=== PATIENT | female | born 1970 | race Caucasian/White ===

== ENCOUNTER 2017-06-03 12:24 | Inpatient (IN) | payer OTHER ==
[2017-06-03 13:12] LABS: Hematocrit 36.9 % (36.0-47.0); Mean Platelet Volume 7.4 fL (7.4-10.4); Red Blood Cell (RBC) Count 4.53 mill/uL (4.20-5.40); White Blood Cell (WBC) Count 21.7 thou/uL (4.8-10.8)
[2017-06-03 13:18] LABS: PTT 38.9 SEC (22.9-36.1); Prothrombin Time 15.6 SEC (12.0-14.7)
[2017-06-03] MEDS ORDERED: Dexamethasone 4 mg/ml Vial ONE (13:21)
[2017-06-03] MEDS ORDERED: Magnesium Sulfate 2 GM/100 ML BAG ONE (13:22)
[2017-06-03 13:25] LABS: Anisocytosis SLIGHT = 6-15 cells (100X) (0-5/hpf); Band 22 % (5-11); Hypochromia SLIGHT = 6-15 cells (100X) (0-5/hpf); Metamyelocyte 2 % (0-0); Neutrophil 73 % (42-75); Polychromasia SLIGHT = 2-3 cells (100X) (0-2/hpf); Reactive Lymphocytes 1 % (0-10)
[2017-06-03 13:30] LABS: Lactic Acid - Sepsis 2.8 mmol/L (0.5-2.2)
[2017-06-03] MEDS ORDERED: Albuterol Sulfate 2.5 mg/0.5 ml Neb ONE (13:31)
[2017-06-03 13:33] LABS: ALT (SGPT) 8 U/L (8-55); AST (SGOT) 8 U/L (5-34); Alkaline Phosphatase 74 U/L (40-150); Anion Gap 12 mmol/L (10-20); BUN (Urea Nitrogen) 13 mg/dL (7.0-18.7); CK (CPK) 94 U/L (29-168); Calc. Creatinine Clearance 0 mL/min (70-130); Calcium 9.4 mg/dL (7.8-10.44); Carbon Dioxide 25 mmol/L (22-29); Chloride 98 mmol/L (98-107); Estimated GFR-MDRD 74; Globulin 3.5 g/dL (2.4-3.5); Lipase 6 U/L (8-78); Protein, Total 7.2 g/dL (6.0-8.3)
[2017-06-03 13:37] LABS: Troponin I Less than 0.010 ng/mL (< 0.028)
[2017-06-03 13:42] LABS: Oxyhemoglobin 93.9 % (94.0-97.0); Sodium 134 mmol/L (135-148)
[2017-06-03 13:53] LABS: Mechanical Tidal Volume 550 ml; Vent NO
[2017-06-03 13:54] LABS: Mode BIPAP
--- NOTE | 2017-06-03 15:10 | RAD ---
CHEST 1 VIEW: HISTORY: Dyspnea. COMPARISON: 10/12/16. FINDINGS: The cardiac silhouette is magnified by projection. Pulmonary vasculature remains slightly engorged. Mediastinum is midline. No lobar consolidation or pleural fluid are apparent. ekg monitor tech le ads overlie the chest. IMPRESSION: Borderline cardiomegaly and pulmonary vascular congestion are similar to the previous exam. POS: [facility]
[2017-06-03] MEDS ORDERED: Dextrose 5% in Water 1,000 ML IV PRN (17:22)
[2017-06-03] MEDS ORDERED: HumaLOG 300 UNITS/3 ML VIAL SC PRN ×2 (17:22)
[2017-06-03] MEDS ORDERED: Dextrose 50% Abboject 50 ML SYRINGE SLOW IVP PRN (17:22)
[2017-06-03 17:27] VITALS: BMI 84.6
[2017-06-03] MEDS ORDERED: Ketorolac Tromethamine 30 MG/ML VIAL IVP SCH (17:30)
[2017-06-03] MEDS ORDERED: Enoxaparin Sodium 40 MG/0.4 ML SYRINGE SC SCH (17:30)
[2017-06-03] MEDS: Sodium Chloride 0.9% 1,000 ML IV SCH (18:39)
--- NOTE | 2017-06-04 00:09 | HP-2 ---
CODE STATUS: FULL. PRIMARY CARE PHYSICIAN: Karly Ramires MD ATTENDING PHYSICIAN: Karly Ramires MD PGY1: Kasey Miranda DO CHIEF COMPLAINT: Shortness of breath, cough, and fever. HISTORY OF PRESENT ILLNESS: This is a 46-year-old female with past medical history of COPD, extreme obesity with alveolar hypoventilation, and diabetes mellitus type 2, well controlled, who presents with 1-day history of fever with T-max to 103 degrees Fahrenheit, cough, and shortness of breath. The patient is on BiPAP at home anytime she lays down. Of note, patient reports increased sputum production. She also endorses a 2-day history of abdominal irritation, warmth, and redness. She endorses shortness of breath while lying flat and during the night. She denies any nausea, vomiting, diarrhea, weakness, or chest pain. She was given 1 liter normal saline in the ED along with Levaquin, vancomycin, and Decadron. PAST MEDICAL HISTORY: 1. COPD. 2. Osteoarthritis. 3. Extreme obesity with alveolar hypoventilation. 4. Vitamin B12 deficiency. 5. Mild intermittent asthma. 6. Lymphedema. 7. HTN. 8. Type 2 diabetes mellitus, well-controlled. 9. Obstructive sleep apnea. PAST SURGICAL HISTORY: No known surgeries. ALLERGIES: PENICILLIN. MEDICATIONS: 1. Albuterol sulfate 2.5 mg per 3 mL solution for nebulization, inhale 3 mL 3 times a day by nebulization route. 2. Aspirin 81 mg tablet delayed release 1 tablet every day by mouth. 3. Atorvastatin 80 mg oral daily. 4. Byetta 10 mcg per dose of 2.5 mL subcutaneous, inject 2 mg twice a day by subcutaneous route. 5. Chantix 1 mg tablet twice a day. 6. Cyclobenzaprine 10 mg tablet 3 times a day. 7. Lactulose 15 mL every day. 8. Lisinopril 5 mg tablet oral daily. 9. [place] 28 mcg iron 1 mg tablet daily. 10. OxyContin 10 mg tablet daily. 11. Potassium chloride extended release 10 mEq tablet daily. 12. [place] oil 1000 mg capsule t.i.d. 13. Promethazine 25 mg tablet q.6 hours as needed. 14. Prozac 40 mg capsule every day. 15. Triamcinolone acetonide 0.1% topical ointment to affected area 2 times per day. 16. Ventolin HFA 90 mcg continuation of actuation aerosol inhaler 2 puffs every 4 hours as needed. 17. Vitamin B12 of 1000 mcg tablet daily. 18. Zyrtec 10 mg tablet daily. FAMILY HISTORY: Patient has a grandmother with history of lung cancer. SOCIAL HISTORY: The patient is a current smoker; 1-1/2 packs per day for the past 35 years. She denies alcohol or drug use. She states that she has no ill contacts at home. REVIEW OF SYSTEMS: A 12-point review of systems was performed, all are negative except as listed in HPI and as indicated below. The patient complains of a 1-day history of fever with T-max 103. She also endorses productive cough , shortness of breath and exercise intolerance. She has paroxysmal nocturnal dyspnea and orthopnea. She also has abdominal pain and a new rash on her abdomen that started 2 days ago. She describes it as painful, red, and warm. She also endorses arthritis. PHYSICAL EXAMINATION: VITAL SIGNS: Blood pressure 87/57 on presentation, pulse 112, respiratory rate 17, T-max 100, pulse ox 94% on BiPAP. Current weight 90.51 kg. GENERAL: The patient is alert and oriented x3, in no acute distress, well- developed, well-nourished, obese, appropriately interactive. EYES: Pupils equally round, react to light and accommodation. Nasal mucosa within normal limits. NECK: Supple, without lymphadenopathy. CARDIOVASCULAR: Heart tones difficult to appreciate. I did not hear any murmurs, but patient is tachycardic. RESPIRATORY: The patient is currently on BiPAP machine. Difficult to assess. I did not appreciate crackles or rhonchi. She does have some wheezing on the anterior lungs. SKIN: Warm and dry. She has a cellulitis on the abdomen extending from the suprapubic region midway to the abdomen. Of note, the patient has a large pannus secondary to her size and the infection seems to be worse on the underside of the pannus, it is erythematous and warm. No abscesses appreciated. ABDOMEN: Soft and tender to palpation in the lower abdomen where the cellulitis is present. Bowel sounds are positive in all four quadrants and there are no masses or distention. EXTREMITIES: No clubbing or cyanosis. Patient has lymphedema. MUSCULOSKELETAL: Structure within normal limits. NEUROLOGIC: No focal deficits. Cranial nerves II through XII intact. GCS 15. PSYCHIATRIC: Appropriate. LABORATORY AND DIAGNOSTIC DATA: 1. CBC: WBC 21.7, hemoglobin 11.7, hematocrit 36.9, platelet count 400. 2. CMP: Sodium 131, potassium 3.9, chloride 98, bicarbonate 25, BUN 13, creatinine 0.3, glucose 143, calcium 9.4, total bilirubin 1.0, total protein 7.2 , albumin 3.7, AST 8, ALT 8, alkaline phosphatase 74. 3. Lactic acid 2.8. 4. PT 15.6, INR 1.2, PTT 38.9. 5. CK 94. 6. CK-MB 1. Troponins less than 0.010. 7. Lipase 6. 8. BNP 123. 9. ABG: pH 7.4, pCO2 of 40.8, pO2 of 111.5. 10. Chest x-ray shows borderline cardiomegaly and pulmonary vascular congestion. ASSESSMENT AND PLAN: This is a 46-year-old female who presents with 1-day history of cough, fever, shortness of breath. 1. Sepsis secondary to abdominal cellulitis. The patient has an elevated white blood cell count of 21.7. She also had a lactic acid of 2.8. Patient was tachycardic and hypotensive on presentation. Blood cultures are pending. Urinalysis was performed, did not show any evidence of infection. Urine culture is currently pending. Influenza screen pending. The patient was fluid resuscitated. She was started on vancomycin and Levaquin in the ED. We will repeat a CBC in the a.m. and continue to monitor her vitals. 2. Chronic obstructive pulmonary disease exacerbation. Patient is currently on BiPAP. She is to continue using BiPAP for respiratory support. Additionally , she has DuoNebs scheduled and p.r.n. She was started on Levaquin and steroids. She was given one time dose of Toradol for musculoskeletal pain associated with the cough. Flu vaccine was given. 3. Diabetes mellitus type 2, well controlled. We will hold her Byetta for time being and place patient on mild sliding scale insulin. We are holding Byetta because it is non-formulary. 4. Extreme obesity with alveolar hypoventilation. Continue BiPAP and monitor her O2 saturation. 5. HTN, we will continue home medcroinne. 6. Hypertension. We will continue her home meds and continue to monitor her blood pressure. 7. Congestive heart failure. The patient endorses a history of congestive heart failure. An echo was performed on 03/24/2016, which did not support evidence of congestive heart failure. We will hold the Lasix for sepsis. 8. Deep venous thrombosis prophylaxis, Lovenox. DISPOSITION AND LENGTH OF HOSPITAL STAY: Two days. Symptomatic medications will be provided. History and physical exam as well as management discussed with Dr. Ramires. MARILIN
[2017-06-04] MEDS ORDERED: HYDROcodone/Acetaminophen 5/325 mg Tablet PO SCH (01:15)
[2017-06-04] MEDS: Sodium Chloride 0.9% 1,000 ML IV SCH ×2 (05:23→08:29)
[2017-06-04 07:17] LABS: Anion Gap 14 mmol/L (10-20); BUN (Urea Nitrogen) 13 mg/dL (7.0-18.7); Calc. Creatinine Clearance 284 mL/min (70-130); Calcium 9.2 mg/dL (7.8-10.44); Carbon Dioxide 21 mmol/L (22-29); Chloride 101 mmol/L (98-107); Estimated GFR-MDRD 84
[2017-06-04 07:20] LABS: Band 14 % (5-11); Hematocrit 36.5 % (36.0-47.0); Mean Platelet Volume 7.3 fL (7.4-10.4); Neutrophil 85 % (42-75); Red Blood Cell (RBC) Count 4.38 mill/uL (4.20-5.40); White Blood Cell (WBC) Count 22.8 thou/uL (4.8-10.8)
--- NOTE | 2017-06-04 08:12 | PDOC.FM ---
Addendum entered and electronically signed by Chuy Rivas MD 06/04/17 09:31 : Will transfer out of IMCU to Medical floor. Original Note: - Subjective Subjective: CC: abdominal pain HPI: states pain in panniculus is present. States breathing better. No other concerns. - Objective MAR Reviewed: Yes Vital Signs & Weight: Vital Signs (12 hours) Temp Pulse Resp BP Pulse Ox 06/04/17 07:51 98.1 F 97 24 H 101/59 L 91 L 06/04/17 07:18 97.4 F L 85 20 94 L 06/04/17 06:29 81 20 06/04/17 04:13 94 L 06/04/17 04:00 97.4 F L 96 20 125/78 94 L 06/04/17 00:00 97.1 F L 90 22 H 114/59 L 96 06/03/17 22:36 98 I&O: 06/03/17 06/04/17 06/05/17 06:59 06:59 06:59 Intake Total 720 Output Total 650 Balance 70 Result Diagrams: 06/04/17 06:36 06/04/17 06:36 <Chuy Rivas - Last Filed: 06/04/17 08:10> - Objective Vital Signs & Weight: Vital Signs (12 hours) Temp Pulse Resp BP Pulse Ox 06/04/17 12:00 96.3 F L 83 22 H 128/67 91 L 06/04/17 10:14 81 16 06/04/17 07:51 98.1 F 97 24 H 101/59 L 91 L 06/04/17 07:18 97.4 F L 85 20 94 L 06/04/17 06:29 81 20 06/04/17 04:13 94 L 06/04/17 04:00 97.4 F L 96 20 125/78 94 L I&O: 06/03/17 06/04/17 06/05/17 06:59 06:59 06:59 Intake Total 720 Output Total 650 Balance 70 Result Diagrams: 06/04/17 06:36 06/04/17 06:36 <Karly Ramires - Last Filed: 06/04/17 14:13> Phys Exam - Physical Examination Constitutional: NAD HEENT: moist MMs, sclera anicteric Neck: no nodes, no JVD Respiratory: no wheezing, clear to auscultation bilateral Cardiovascular: RRR, no significant murmur Musculoskeletal: edema present (anasarca ) Neurological: non-focal, moves all 4 limbs Skin: cap refill <2 seconds <Chuy Rivas - Last Filed: 06/04/17 08:10> Dx/Plan (1) Abdominal wall cellulitis Code(s): L03.311 - CELLULITIS OF ABDOMINAL WALL Status: Acute Plan: Vanc day 2 - continue abx - vital stable (2) COPD exacerbation Code(s): J44.1 - CHRONIC OBSTRUCTIVE PULMONARY DISEASE W (ACUTE) EXACERBATION Status: Acute Plan: Levaquin day 2. 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 (4) Obesity hypoventilation syndrome Code(s): E66.2 - MORBID (SEVERE) OBESITY WITH ALVEOLAR HYPOVENTILATION Status : Chronic Plan: continue BiPAP <Chuy Rivas - Last Filed: 06/04/17 08:10> Attending Addendum - Attending Addendum I personally evaluated the patient and discussed the management with Dr. Rivas. I agree with the History, Examination, Assessment and Plan documented above with any addition or exceptions noted below. Patient doing much better regarding breathing today. No longer wheezing. However , still has significant tenderness of abdominal cellulitis and wants to know how that happened. She has been trying to keep the area clean and dry. bathed her, dried the area under the panniculus, and applied powder prior to discharge and now she worries that is what caused the infection. Lungs are clear. Will continue present management. <Karly Ramires - Last Filed: 06/04/17 14:13>
[2017-06-04] MEDS: predniSONE 20 MG TAB PO SCH (08:30)
[2017-06-04] MEDS: Enoxaparin Sodium 40 MG/0.4 ML SYRINGE SC SCH (08:31)
[2017-06-04] MEDS ORDERED: FLU VACC QS2017-18 36 mo. & older 0.5 ML SYRINGE IM ONE (09:00)
--- NOTE | 2017-06-04 17:36 | CON ---
DATE OF CONSULTATION: 06/04/2017 HISTORY OF PRESENT ILLNESS: Caity Porras is a 46-year-old female who is seen by Dr. Flores in th e past. She has Trilogy home ventilator for use with some mask and she is managed out of the hospit al for year and half since this was started, she tells me. Unfortunately, she still smokes half pac k a day. She says that she has been around people who have been ill lately and started developing c ough, chest congestion, and shortness of breath. She subsequently was admitted for further care. She has been using her BiPAP intermittently and says she feels much better. PAST MEDICAL HISTORY: 1. Remarkable for chronic obstructive pulmonary disease/asthma. 2. Severe arthritis in her knees, most likely related to her weight. 3. Obesity hypoventilation syndrome. 4. History of diabetes. SOCIAL HISTORY: She is half pack a day smoker, not a daily drinker. ALLERGIES: She reports PENICILLIN allergy. MEDICATIONS: Prior to admission, she was on nebulizer treatments at home aspirin, atorvastatin, Bye tta, Chantix sheet which she says has been helping with her smoking, Flexeril, lisinopril, OxyContin , potassium, Prozac, Zyrtec. FAMILY HISTORY: Lung cancer. REVIEW OF SYSTEMS: Otherwise negative. She has had a cough, but not purulent sputum. Her father w as ill with cough with purulent sputum, but his illness is resolved. PHYSICAL EXAMINATION: VITAL SIGNS: Blood pressure is 120/67, heart rate 83, respiratory rate 22, oximetry is 91. She is afebrile. HEENT: Pupils are equal. Sclerae is anicteric. NECK: Supple. LUNGS: Remarkable for distant wheezes. HEART: Regular rhythm. LABS: Soft and nontender. LABORATORY DATA: White count 22.8, hemoglobin 11.2, platelets 375. Sodium 131, potassium 4.5, chloride 101, bicarb 21, BUN 13, creatinine 0.7, pH yesterday in the afte rnoon 7.41, CO2 of 40, PO2 of 111. IMPRESSION: 1. Chronic obstructive pulmonary disease/reactive airways exacerbation with bronchitis. 2. Chronic respiratory failure on home nocturnal ventilation with a Trilogy machine and facemask. 3. Obesity hypoventilation. 4. Life threatening obesity with a weight of 419 pounds at 59 inches of height making her BMI of 84 . She is not calorie counting, we discussed ways to do this. PLAN: Nebulizer treatments, steroids. She can be treated with p.o. antibiotics. There is no clini milad radiographic evidence for pneumonia. Vancomycin should be discontinued. There is no evidence o f dealing with MRSA sepsis. I suspect the erythema on her abdominal wall is equally likely to be ju st simply related to stasis with her life threatening obesity.
[2017-06-04] MEDS ORDERED: Ketorolac Tromethamine 30 MG/ML VIAL IVP SCH (21:00)
[2017-06-04] MEDS: Potassium Chloride 10 MEQ TAB PO SCH (21:09)
[2017-06-04] MEDS: Atorvastatin Calcium 40 MG TAB PO SCH (21:09)
[2017-06-05 05:20] LABS: Anion Gap 10 mmol/L (10-20); BUN (Urea Nitrogen) 17 mg/dL (7.0-18.7); Calc. Creatinine Clearance 305 mL/min (70-130); Calcium 9.2 mg/dL (7.8-10.44); Carbon Dioxide 27 mmol/L (22-29); Chloride 103 mmol/L (98-107); Estimated GFR-MDRD 90
[2017-06-05 05:54] LABS: Anisocytosis SLIGHT = 6-15 cells (100X) (0-5/hpf); Band 8 % (5-11); Hematocrit 32.7 % (36.0-47.0); Hypochromia SLIGHT = 6-15 cells (100X) (0-5/hpf); Mean Platelet Volume 7.7 fL (7.4-10.4); Metamyelocyte 1 % (0-0); Microcytosis SLIGHT = 6-15 cells (100X) (0-5/hpf); Neutrophil 79 % (42-75); Red Blood Cell (RBC) Count 3.96 mill/uL (4.20-5.40); White Blood Cell (WBC) Count 21.3 thou/uL (4.8-10.8)
[2017-06-05] MEDS: Aspirin 81 mg Enteric Coated Tablet PO SCH (08:30)
[2017-06-05] MEDS: Lisinopril 5 MG TAB PO SCH (08:30)
[2017-06-05] MEDS: Furosemide 20 MG TAB PO SCH (08:31)
[2017-06-05] MEDS: FLUoxetine HCl 20 MG CAP PO SCH (08:31)
[2017-06-05] MEDS: predniSONE 20 MG TAB PO SCH (08:31)
[2017-06-05] MEDS: Potassium Chloride 10 MEQ TAB PO SCH ×2 (08:31→20:33)
[2017-06-05] MEDS: Enoxaparin Sodium 40 MG/0.4 ML SYRINGE SC SCH (08:33)
[2017-06-05] MEDS ORDERED: Ketorolac Tromethamine 10 MG TAB PO SCH (10:00)
--- NOTE | 2017-06-05 10:33 | PDOC.FM ---
- Subjective Subjective: SARA overnight, breathing at baseline per pt. Still w/ abdominal tenderness. Afebrile. No new complaints. - Objective MAR Reviewed: Yes Vital Signs & Weight: Vital Signs (12 hours) Temp Pulse Resp BP BP Pulse Ox 06/05/17 08:30 81 168/91 H 06/05/17 07:34 96.7 F L 81 20 168/91 H 95 06/05/17 06:02 97 18 97 06/05/17 02:11 84 18 97 06/04/17 23:11 85 18 97 I&O: 06/04/17 06/05/17 06/06/17 06:59 06:59 06:59 Intake Total 720 740 Output Total 650 Balance 70 740 Result Diagrams: 06/05/17 04:49 06/05/17 04:49 <Mando Childers - Last Filed: 06/05/17 10:31> - Objective Vital Signs & Weight: Vital Signs (12 hours) Temp Pulse Resp BP BP Pulse Ox 06/05/17 08:30 81 168/91 H 06/05/17 07:34 96.7 F L 81 20 168/91 H 95 06/05/17 06:02 97 18 97 06/05/17 02:11 84 18 97 06/04/17 23:11 85 18 97 I&O: 06/04/17 06/05/17 06/06/17 06:59 06:59 06:59 Intake Total 720 740 Output Total 650 Balance 70 740 Result Diagrams: 06/05/17 04:49 06/05/17 04:49 <Laure Summers - Last Filed: 06/05/17 11:09> Phys Exam - Physical Examination Constitutional: NAD HEENT: PERRLA Respiratory: no wheezing, clear to auscultation bilateral Cardiovascular: RRR, no significant murmur Gastrointestinal: soft, positive bowel sounds Erythema RLQ and LLQ w/ tenderness in LLQ. Neurological: moves all 4 limbs Psychiatric: normal affect, A&O x 3 Deviation from normal: See GI <Mando Childers - Last Filed: 06/05/17 10:31> Dx/Plan (1) Acute and chronic respiratory failure Code(s): J96.20 - ACUTE AND CHR RESP FAILURE, UNSP W HYPOXIA OR HYPERCAPNIA Status: Acute Qualifiers: Respiratory failure complication: hypercapnia Qualified Code(s): J96.22 - Acute and chronic respiratory failure with hypercapnia Plan: Satting well on RA and use of C-pap HS Lungs CTA and no evidence of PNA on CXR Will continue w/ levaquin for likely COPD exacerbation w/ full 5 day course of PO prednisone Cont. w/ nebs Pt w/ nebulizer at home for PRN use upon discharge (2) Abdominal wall cellulitis Code(s): L03.311 - CELLULITIS OF ABDOMINAL WALL Status: Acute Plan: BCx NGTD x2 Will d/c vanc and transition to PO clindamycin for full 10 day course Will observe pt overnight to monitor for worsening of rash on PO abx and likely d/c in AM (3) DMII (diabetes mellitus, type 2) Status: Chronic Qualifiers: Diabetes mellitus complication status: with unspecified complications Diabetes mellitus exterminator helper insulin use: without exterminator helper use Qualified Code( s): E11.8 - Type 2 diabetes mellitus with unspecified complications Plan: Slightly elevated on current regimen, likely 2/2 steroids Will continue to monitor Diabetic diet (4) Hypertension Code(s): I10 - ESSENTIAL (PRIMARY) HYPERTENSION Status: Chronic Qualifiers: Hypertension type: essential hypertension Qualified Code(s): I10 - Essential (primary) hypertension Plan: Cont. w/ home BP meds (5) Obesity hypoventilation syndrome Code(s): E66.2 - MORBID (SEVERE) OBESITY WITH ALVEOLAR HYPOVENTILATION Status : Chronic Plan: Cont. w/ C-PAP HS <Mando Childers - Last Filed: 06/05/17 10:31> Attending Addendum - Attending Addendum I personally evaluated the patient and discussed the management with Dr. Childers I agree with the History, Examination, Assessment and Plan documented above with any addition or exceptions noted below- Patient without complaints. States that breathing is back to baseline. Afebrile VSS A/P: 1) Obesity- hypoventilation syndrome- stable; continue Bipap/cpap when asleep, 2) Abdominal wall cellulitis- tender to palpation with erythema; improved; change to po abx and probable d/c home tomorrow. <Laure Summers - Last Filed: 06/05/17 11:09>
[2017-06-05] MEDS: Clindamycin 150 MG CAP PO SCH ×3 (11:57→17:58)
--- NOTE | 2017-06-05 14:43 | PRG ---
DATE OF SERVICE: 06/05/2017 SERVICE: Pulmonary Medicine. INTERVAL HISTORY: The patient is doing fine from a cardiovascular and respiratory standpoint. She denies any current shortness of breath or chest discomfort. She is returning to her usual state of health and is hoping to go home today or tomorrow. Otherwise, there were no events overnight. She continues to use nocturnal ventilator. PHYSICAL EXAMINATION: VITAL SIGNS: Afebrile, pulse 74, blood pressure 117/73, respirations 20, saturation 96% on room air . GENERAL: Patient is awake and alert, in no apparent distress. LUNGS: Excellent air entry. There is no prolonged expiratory phase. I do not appreciate rhonchi, wheezing or crackles, but body habitus does prevent careful auscultation. HEART: Normal rate, regular. ABDOMEN: Soft, nontender, nondistended. Bowel sounds positive. MUSCULOSKELETAL: No cyanosis or clubbing. No pitting in the bilateral lower extremities. NEUROLOGIC: Grossly nonfocal. LABORATORY DATA: WBC 21.3, hemoglobin 10.1, platelets 389,000. INR 1.2. PH 7.41, pCO2 of 40, pO2 111 on AVAPS at that time. Basic metabolic profile was completely unremarkable and the bicarbonate has improved to normal range of 27. Blood cultures x2 and Influenza A and B are unremarkable. ASSESSMENT: 1. Obesity hypoventilation with acute exacerbation. 2. Chronic hypercapnic respiratory failure, requiring Trilogy via facemask. 3. Morbid obesity. 4. Severe sepsis. PLAN: Antibiotics will be continued. If the white blood cell count goes down by tomorrow and the b lood cultures remain normal, she is a candidate for discharge from the hospital. Pulmonary Critical Care will continue to follow while she remains in house. For the time being, her home ventilator w ill be continued.
[2017-06-05] MEDS: traMADol HCl 50 MG TAB PO PRN (20:28)
[2017-06-05] MEDS: Atorvastatin Calcium 40 MG TAB PO SCH (20:33)
[2017-06-06] MEDS: Clindamycin 150 MG CAP PO SCH ×2 (00:35→05:00)
[2017-06-06] MEDS: traMADol HCl 50 MG TAB PO PRN ×2 (02:27→07:01)
[2017-06-06 05:25] LABS: Band 11 % (5-11); Hematocrit 33.4 % (36.0-47.0); Mean Platelet Volume 7.4 fL (7.4-10.4); Neutrophil 75 % (42-75); Red Blood Cell (RBC) Count 4.08 mill/uL (4.20-5.40); White Blood Cell (WBC) Count 18.8 thou/uL (4.8-10.8)
[2017-06-06 05:33] LABS: Anion Gap 12 mmol/L (10-20); BUN (Urea Nitrogen) 15 mg/dL (7.0-18.7); Calc. Creatinine Clearance 318 mL/min (70-130); Calcium 9.2 mg/dL (7.8-10.44); Carbon Dioxide 27 mmol/L (22-29); Chloride 102 mmol/L (98-107); Estimated GFR-MDRD Greater than 90
--- NOTE | 2017-06-06 06:41 | EKG ---
Test Reason : Blood Pressure : / mmHG Vent. Rate : 110 BPM Atrial Rate : 110 BPM P-R Int : 142 ms QRS Dur : 092 ms QT Int : 332 ms P-R-T Axes : -29 -21 014 degrees QTc Int : 449 ms Sinus tachycardia Otherwise normal ECG Confirmed by VICENTE ALMENDAREZ, ANEL ([id number]), supervising editor news reel GALEN LEACH ([id number]) on 06/06/2017 6:41:27 AM Referred By: Confirmed By:ANEL ZHANG MD
[2017-06-06] MEDS ORDERED: Clindamycin 150 MG CAP PO SCH ×2 (07:50→08:00)
[2017-06-06 07:55] VITALS: BP 130/81; TEMP 98.1
[2017-06-06] MEDS ORDERED: HYDROcodone/Acetaminophen 10/325 mg Tablet PO PRN (07:57)
--- NOTE | 2017-06-06 08:02 | PDOC.FM ---
- Subjective Subjective: Pt complaining of abdominal pain this AM. has not been getting home pain medications during hospitalization. Also states redness has spread. Afebrile overnight. Tolerating PO. No other complaints. - Objective MAR Reviewed: Yes Vital Signs & Weight: Vital Signs (12 hours) Temp Pulse Resp BP Pulse Ox 06/06/17 07:51 98.1 F 108 H 20 130/81 94 L 06/06/17 06:10 89 16 95 06/06/17 06:09 99.7 F H 06/06/17 02:14 85 16 96 06/05/17 22:10 82 16 97 06/05/17 20:00 98.7 F 80 16 136/78 97 I&O: 06/05/17 06/06/17 06/07/17 06:59 06:59 06:59 Intake Total 740 Balance 740 Result Diagrams: 06/06/17 04:52 06/06/17 04:52 <Mando Childers - Last Filed: 06/06/17 07:59> - Objective Vital Signs & Weight: Vital Signs (12 hours) Temp Pulse Resp BP BP Pulse Ox 06/06/17 09:19 108 H 130/81 06/06/17 08:00 98.1 F 108 H 20 06/06/17 07:51 98.1 F 108 H 20 130/81 94 L 06/06/17 06:10 89 16 95 06/06/17 06:09 99.7 F H 06/06/17 02:14 85 16 96 I&O: 06/05/17 06/06/17 06/07/17 06:59 06:59 06:59 Intake Total 740 Balance 740 Result Diagrams: 06/06/17 04:52 06/06/17 04:52 <Laure Summers - Last Filed: 06/06/17 10:46> Phys Exam - Physical Examination Constitutional: NAD Respiratory: clear to auscultation bilateral Gastrointestinal: positive bowel sounds Neurological: moves all 4 limbs Psychiatric: normal affect, A&O x 3 Deviation from normal: redness lower abdomen slightly higher than yesterday. TTP baseline <Mando Childers - Last Filed: 06/06/17 07:59> Dx/Plan (1) Acute and chronic respiratory failure Code(s): J96.20 - ACUTE AND CHR RESP FAILURE, UNSP W HYPOXIA OR HYPERCAPNIA Status: Acute Qualifiers: Respiratory failure complication: hypercapnia Qualified Code(s): J96.22 - Acute and chronic respiratory failure with hypercapnia Plan: Satting well on RA and use of C-pap HS Lungs CTA and no evidence of PNA on CXR Will continue w/ levaquin for likely COPD exacerbation w/ full 5 day course of PO prednisone Cont. w/ nebs Pt w/ nebulizer at home for PRN use upon discharge Cleared for d/c by pulmonology (2) Abdominal wall cellulitis Code(s): L03.311 - CELLULITIS OF ABDOMINAL WALL Status: Acute Plan: BCx NGTD x2 Increase clinda form 300 mg to 450 mg QID 2/2 possible mild spreading Will put in order for norco to help w/ pain control as this is her main complaint Pain likely compounded by being off her home pain regimen Will plan to monitor patient through afternoon and if remains afebrile and rash stable will plan to discharge w/ full PO course of clindamycin w/ outpatient f/ u (3) DMII (diabetes mellitus, type 2) Status: Chronic Qualifiers: Diabetes mellitus complication status: with unspecified complications Diabetes mellitus equipment operator intermodal yard insulin use: without chcf use Qualified Code( s): E11.8 - Type 2 diabetes mellitus with unspecified complications Plan: Slightly elevated on current regimen, likely 2/2 steroids Will continue to monitor Diabetic diet (4) Hypertension Code(s): I10 - ESSENTIAL (PRIMARY) HYPERTENSION Status: Chronic Qualifiers: Hypertension type: essential hypertension Qualified Code(s): I10 - Essential (primary) hypertension Plan: Cont. w/ home BP meds (5) Obesity hypoventilation syndrome Code(s): E66.2 - MORBID (SEVERE) OBESITY WITH ALVEOLAR HYPOVENTILATION Status : Chronic Plan: Cont. w/ C-PAP HS <Mando Childers - Last Filed: 06/06/17 07:59> Attending Addendum - Attending Addendum I personally evaluated the patient and discussed the management with Dr. Childers. I agree with the History, Examination, Assessment and Plan documented above with any addition or exceptions noted below- Patient without compaints. Wants to go home. Afebrile VSS. A/P: 1) Abdominal wall cellulitis with component of dependent edema- redness minimally different; mild tenderness; clindamycin dose increased. WBC count improved. Ptainet stable for discharge with close follow- up. 2) Obesity-hypoventilation syndrome- back to baseline. <Laure Summers - Last Filed: 06/06/17 10:46>
[2017-06-06] MEDS: Potassium Chloride 10 MEQ TAB PO SCH (09:16)
[2017-06-06] MEDS: Furosemide 20 MG TAB PO SCH (09:16)
[2017-06-06] MEDS: FLUoxetine HCl 20 MG CAP PO SCH (09:17)
[2017-06-06] MEDS: predniSONE 20 MG TAB PO SCH (09:17)
[2017-06-06] MEDS: Aspirin 81 mg Enteric Coated Tablet PO SCH (09:17)
[2017-06-06] MEDS: Enoxaparin Sodium 40 MG/0.4 ML SYRINGE SC SCH (09:18)
[2017-06-06] MEDS: Lisinopril 5 MG TAB PO SCH (09:19)
--- NOTE | 2017-06-06 16:51 | PRG ---
DATE OF SERVICE: 06/06/2017 SERVICE: Pulmonary Medicine. INTERVAL HISTORY: The patient is doing very well from a respiratory standpoint. She denies any cur rent shortness of breath or chest discomfort. She feels that she has returned to her usual state of health. White blood cell count is actually improving fairly dramatically. Otherwise, she has no s pecific complaints presently. PHYSICAL EXAMINATION: VITAL SIGNS: Afebrile, pulse 108, blood pressure 130/81, respirations 20, saturation 94% on room ai r. GENERAL: The patient is awake and alert, in no apparent distress. LUNGS: Decent air entry. There is no prolonged expiratory phase, wheezing, rhonchi or crackles. HEART: Normal rate, regular. ABDOMEN: Soft, nontender, nondistended. Bowel sounds positive. MUSCULOSKELETAL: No cyanosis or clubbing. There is 1+ pitting in the bilateral lower extremities w ith chronic stasis changes. GENITOURINARY: No Fleming catheter. NEUROLOGIC: Grossly nonfocal. LABORATORY DATA: WBC 18.8, hemoglobin 10.3, platelets 406,000. INR 1.1. Neutrophil count is impro ving. Basic metabolic profile is completely unremarkable. ASSESSMENT: 1. Obesity hypoventilation syndrome with acute exacerbation. 2. Chronic hypercapnic respiratory failure, requiring Trilogy ventilator via facemask. 3. Morbid obesity. 4. Severe sepsis. 5. Cellulitis. PLAN: From my perspective, the patient is stable from a respiratory perspective for discharge from the hospital. Pulmonary will continue to follow while she remains in house however. She indicates that she is returned to her usual state of health. If she is discharged today, repeat blood cell co unt will need to be considered in the outpatient setting. I will see her in clinic as previously alannah vidales.
--- NOTE | 2017-06-06 19:13 | DIS-2 ---
DATE OF ADMISSION: 06/03/2017 DATE OF DISCHARGE: 06/06/2017 ADMITTING ATTENDING: Karly Ramires M.D. DISCHARGE ATTENDING: Laure Summers M.D. RESIDENT: Mando Childers M.D. CONSULTATION: 1. Pulmonology, Dr. Segundo. PROCEDURES: None. PRIMARY DIAGNOSES: 1. Severe sepsis likely secondary to abdominal cellulitis. 2. Chronic obstructive pulmonary disease exacerbation. SECONDARY DIAGNOSES: 1. Type 2 diabetes mellitus. 2. Pickwickian syndrome. 3. Hypertension. 4. Congestive heart failure. DISCHARGE MEDICATIONS: 1. Clindamycin 450 mg q.i.d. 2. Levaquin 750 mg p.o. daily. 3. Prednisone 40 mg p.o. daily. 4. Chantix 1 mg p.o. daily. 5. Potassium chloride 10 mEq p.o. b.i.d. 6. Lisinopril 5 mg p.o. daily. 7. Lasix 40 mg p.o. every day. 8. Aspirin 81 mg p.o. every day. 9. Lipitor 80 mg p.o. at bedtime. 10. Fluoxetine 60 mg p.o. every day. 11. Exenatide 10 mcg subcutaneous b.i.d. before meals. DISCONTINUED MEDICATIONS: None. HISTORY OF PRESENT ILLNESS AND HOSPITAL COURSE: The patient is a 46-year-old female who initially p resented to the ER for evaluation of worsening shortness of breath, cough, and fever. Patient was w ith a fever of 103 degrees Fahrenheit at home prior to presentation in the ER as well with worsening cough and changes in sputum production concerning for possible COPD exacerbation. Patient also was found to have a rash on the ventral surface of her abdomen near her pannus. The rash is concerning for cellulitis at this time. The patient also with hypotension, blood pressure 87/57 upon presenta tion of fever and elevated white blood cell count 21.7 with a left shift. The patient was started o n IV vancomycin as well as IV Levaquin for concurrent cellulitis and chronic obstructive pulmonary d isease exacerbation as well as IV fluids for her sepsis. The patient is with good response with the blood pressure after initiation of IV fluids as well as a decrease in her white blood cell count on IV antibiotics. Blood cultures after growing out negative after 48 hours, patient was transitioned from IV vancomycin to p.o. clindamycin and IV Levaquin to p.o. Levaquin. Patient's breathing retur fariba to baseline. During her hospital stay, Pulmonology was consulted who agreed with plan. The pat ient remained afebrile throughout entire hospitalization with improvement of symptoms prior to disch arge home. Patient did have a slight worsening of her abdominal pain prior to discharge home; howev er, she had been off of her normal pain medication regimen which included oxycodone. The patient wa s give one tablet of [place] 10 mg with subsequent improvement of her pain. The patient is to be disc harged home on p.o. clindamycin for the remaining course as well as p.o. Levaquin and prednisone. T he patient to follow up with primary care provider, Dr. Ramires by the end of the week for followup and improvement/resolution of her symptoms. DISPOSITION: Stable. DISCHARGE INSTRUCTIONS: 1. Location: Home. 2. Followup: Follow up with Karly Ramires M.D. in 3 days. 3. Activity: As tolerated.
== END 2017-06-06 10:24 | disposition home or self-care (01) | DRG 871 ==
LOC: ERS 12:24 → IMCU/EMU 17:22 → ONC 06-04 14:33
PROVIDERS: ADMIT Family Medicine; ATTEND Family Medicine
DX: A41.9 Sepsis, unspecified organism (principal); J96.22 Acute and chronic respiratory failure with hypercapnia; I11.0 Hypertensive heart disease with heart failure; I50.9 Heart failure, unspecified; E66.2 Morbid (severe) obesity with alveolar hypoventilation; J44.1 Chronic obstructive pulmonary disease with (acute) exacerbation; L03.311 Cellulitis of abdominal wall; Z68.45 Body mass index [BMI] 70 or greater, adult; E11.9 Type 2 diabetes mellitus without complications; M17.0 Bilateral primary osteoarthritis of knee; G89.4 Chronic pain syndrome; R65.20 Severe sepsis without septic shock; F17.210 Nicotine dependence, cigarettes, uncomplicated; Z88.0 Allergy status to penicillin; Z99.81 Dependence on supplemental oxygen; Z79.4 Long term (current) use of insulin; Z80.1 Family history of malignant neoplasm of trachea, bronchus and lung
CPT/HCPCS: 36415; 36416; 71010; 80048; 80053; 82550; 82553; 82805; 83605; 83690; 83880; 84484; 85025; 85610; 85730; 87040; 93005; 94640; 94660; 96361; 96365; 96367; 96368; 96375; A4216; J1100; J1650; J1885; J1956; J3370; J3475; J7050; J7506; J7611; J7620

== ENCOUNTER 2020-09-24 00:50 | Inpatient (IN) | payer SELFPAY ==
[2020-09-24] MEDS ORDERED: Acetaminophen 325 MG TAB PO PRN (03:20)
[2020-09-24] MEDS ORDERED: Ondansetron PF 4 MG/2 ML Vial IVP PRN (03:20)
[2020-09-24] MEDS ORDERED: Ondansetron ODT 4 MG TAB PO PRN (03:20)
[2020-09-24] MEDS ORDERED: Ibuprofen 800 MG TAB PO PRN (03:24)
[2020-09-24] MEDS ORDERED: Acetaminophen 500 MG TAB PO SCH (03:24)
[2020-09-24] MEDS ORDERED: Albuterol Sulfate 2.5 mg/3 ml Neb NEB PRN (03:27)
[2020-09-24] MEDS ORDERED: Lactated Ringer's 1,000 ML IV SCH (03:45)
[2020-09-24 04:45] LABS: Anion Gap 13 mmol/L (10-20); BUN (Urea Nitrogen) 19 mg/dL (7.0-18.7); Calc. Creatinine Clearance 0 mL/min (70-130); Carbon Dioxide 29 mmol/L (22-29); Chloride 99 mmol/L (98-107); Glucose 132 mg/dL (70-105); Potassium 5.1 mmol/L (3.5-5.1); Sodium 136 mmol/L (136-145)
[2020-09-24 05:06] LABS: #Basophils 0.1 thou/uL (0.0-0.2); #Eosinphils 0.3 thou/uL (0.0-0.7); #Lymphocytes 3.4 thou/uL (1.20-3.40); #Monocytes 0.7 thou/uL (0.11-0.59); #Neutrophils 7.8 thou/uL (1.40-6.50); %Basophils 0.6 % (0.0-1.0); %Eosinophils 2.8 % (0.0-10.0); %Lymphocytes 27.3 % (21.0-51.0); %Monocytes 5.4 % (0.0-10.0); %Neutrophils 63.8 % (42.0-75.0); Hemoglobin 11.5 g/dL (12.0-16.0); Mean Corpuscular Hemoglobin 23.7 pg (27.0-31.0); Mean Corpuscular Volume 79.2 fL (78.0-98.0); Mean Platelet Volume 8.1 fL (7.4-10.4); Platelet Count 433 thou/uL (130-400); RBC Distribution Width 17.6 % (11.5-14.5); Red Blood Cell (RBC) Count 4.85 mill/uL (4.20-5.40); White Blood Cell (WBC) Count 12.3 thou/uL (4.8-10.8)
[2020-09-24 05:52] VITALS: BMI 83.0
[2020-09-24] MEDS ORDERED: predniSONE 20 MG TAB PO SCH (08:00)
[2020-09-24] MEDS: Enoxaparin Sodium 40 MG/0.4 ML SYRINGE SC SCH (08:50)
[2020-09-24] MEDS ORDERED: Azithromycin 250 MG TAB PO SCH (09:00)
[2020-09-24] MEDS ORDERED: Cyclobenzaprine 10 MG TAB PO SCH ×2 (09:30→21:45)
[2020-09-24 10:21] LABS: Lactic Acid 1.5 mmol/L (0.5-2.2)
[2020-09-24] MEDS ORDERED: HumaLOG 300 UNITS/3 ML VIAL SC PRN ×2 (10:45)
[2020-09-24] MEDS ORDERED: Dextrose 50% Abboject 50 ML SYRINGE IVP PRN (10:45)
[2020-09-24] MEDS ORDERED: Dextrose 5% in Water 1,000 ML IV PRN (10:45)
[2020-09-24] MEDS ORDERED: EXENATIDE 10 MCG/0.04 ML SC SCH (16:30)
[2020-09-24] MEDS ORDERED: Potassium Chloride 10 MEQ TAB PO SCH (21:00)
[2020-09-24] MEDS ORDERED: Furosemide 40 MG TAB PO SCH (21:00)
[2020-09-24] MEDS ORDERED: Doxycycline 100 MG in Syringe 0 ML IVPB SCH (21:00)
[2020-09-24] MEDS ORDERED: cefTRIAXone\\ROCEPHIN 1 GM in Sodium Chloride 0.9% 100 ML IVPB SCH (23:00)
[2020-09-25] MEDS: methylPREDNISolone Sod Succ 40 MG VIAL IVP SCH ×2 (06:32→10:48)
[2020-09-25 07:03] LABS: #Basophils 0.1 thou/uL (0.0-0.2); #Eosinphils 0.3 thou/uL (0.0-0.7); #Lymphocytes 3.1 thou/uL (1.20-3.40); #Monocytes 0.7 thou/uL (0.11-0.59); #Neutrophils 7.7 thou/uL (1.40-6.50); %Basophils 0.6 % (0.0-1.0); %Eosinophils 2.2 % (0.0-10.0); %Lymphocytes 26.3 % (21.0-51.0); Hemoglobin 10.5 g/dL (12.0-16.0); Mean Corpuscular HGB CONC 31.3 g/dL (32.0-36.0); Mean Corpuscular Hemoglobin 24.7 pg (27.0-31.0); Mean Corpuscular Volume 78.8 fL (78.0-98.0); Mean Platelet Volume 7.5 fL (7.4-10.4); Platelet Count 375 thou/uL (130-400); RBC Distribution Width 17.3 % (11.5-14.5); Red Blood Cell (RBC) Count 4.24 mill/uL (4.20-5.40); White Blood Cell (WBC) Count 11.8 thou/uL (4.8-10.8)
[2020-09-25 07:19] LABS: Anion Gap 10 mmol/L (10-20); BUN (Urea Nitrogen) 17 mg/dL (7.0-18.7); Calc. Creatinine Clearance 311 mL/min (70-130); Calcium 8.7 mg/dL (7.8-10.44); Carbon Dioxide 31 mmol/L (22-29); Chloride 100 mmol/L (98-107); Glucose 128 mg/dL (70-105); Sodium 137 mmol/L (136-145)
[2020-09-25] MEDS: Enoxaparin Sodium 40 MG/0.4 ML SYRINGE SC SCH (08:25)
[2020-09-25] MEDS ORDERED: FLUoxetine HCl 20 MG CAP PO SCH (09:00)
[2020-09-25] MEDS ORDERED: Furosemide 40 MG TAB PO SCH (09:00)
[2020-09-25] MEDS ORDERED: Aspirin 81 mg Enteric Coated Tablet PO SCH (09:00)
[2020-09-25] MEDS ORDERED: Albuterol Sulfate 2.5 mg/3 ml Neb NEB PRN (09:03)
[2020-09-25] MEDS ORDERED: Lisinopril 5 MG TAB PO SCH (10:15)
[2020-09-25] MEDS ORDERED: Doxycycline 100 MG CAP PO SCH (11:00)
[2020-09-25 11:07] VITALS: BP 128/108; TEMP 98.7
[2020-09-25] MEDS ORDERED: Mometasone 200 MCG/Formoterol 5 MCG 120 PUFF INHALER INH SCH (18:30)
[2020-09-25] MEDS ORDERED: Atorvastatin Calcium 20 MG TAB PO SCH (21:00)
[2020-09-26] MEDS ORDERED: Lisinopril 5 MG TAB PO SCH (09:00)
== END 2020-09-25 13:22 | disposition home or self-care (01) | DRG 871 ==
LOC: ERS 00:50 → 2NO 01:46
PROVIDERS: ADMIT Family Medicine; ATTEND Family Medicine
PROC: 5A09357 Assistance with Respiratory Ventilation, Less than 24 Consecutive Hours, Continuous Positive Airway Pressure (ICD-10-PCS; principal; 2020-09-24)
DX: A41.9 Sepsis, unspecified organism (principal); J18.9 Pneumonia, unspecified organism; J96.01 Acute respiratory failure with hypoxia; J44.1 Chronic obstructive pulmonary disease with (acute) exacerbation; E66.2 Morbid (severe) obesity with alveolar hypoventilation; J44.0 Chronic obstructive pulmonary disease with (acute) lower respiratory infection; Z20.822 Contact with and (suspected) exposure to COVID-19; G35 Multiple sclerosis; G25.81 Restless legs syndrome; I50.9 Heart failure, unspecified; E11.9 Type 2 diabetes mellitus without complications; F41.9 Anxiety disorder, unspecified; F17.210 Nicotine dependence, cigarettes, uncomplicated; E87.5 Hyperkalemia; E11.40 Type 2 diabetes mellitus with diabetic neuropathy, unspecified; Z85.3 Personal history of malignant neoplasm of breast; Z92.21 Personal history of antineoplastic chemotherapy; Z90.10 Acquired absence of unspecified breast and nipple; Z88.0 Allergy status to penicillin; Z91.018 Allergy to other foods; Z79.899 Other long term (current) drug therapy; Z79.82 Long term (current) use of aspirin
CPT/HCPCS: 36415; 36416; 80048; 83605; 84145; 85025; 94640; 94660; 99284; J1650; J1815; J2920; J3490; J7512; J7620